=== PATIENT | female | born 1975 | race Caucasian/White ===

== ENCOUNTER 2016-07-27 08:00 | Inpatient (IN) | payer MEDICAID ==
[~2016-07-27] VITALS: Ht 144.8 cm; Wt 89.5 kg
[~2016-07-27 08:00] MED LIST: PRENATAL VITAMINS
[2016-07-27 19:56] VITALS: Ht 144.8 cm; Wt 89.5 kg
[2016-07-27 19:57] VITALS: BP 120/63; PULSE 110; RESP 16
[2016-07-27] MEDS ORDERED: MISOPROSTOL 200 MCG TAB PR PRN (20:00)
[2016-07-27] MEDS ORDERED: OXYTOCIN 30 UNITS/LR 500 ML IV PRN (20:00)
[2016-07-27] MEDS ORDERED: CARBOPROST 250 MCG INJ IM PRN (20:00)
[2016-07-27] MEDS ORDERED: METHYLERGONOVINE 0.2 MG INJ IM PRN (20:00)
[2016-07-27] MEDS ORDERED: LIDOCAINE 1% (MPF) 30 ML INJ INJ PRN (20:00)
[2016-07-27] MEDS: LACTATED RINGER'S 1,000 ML IV SCH (20:40)
[2016-07-27 21:17] LABS: BASOPHILS % 0.3 % (0.0-2.0); EOSINOPHILS % 0.5 % (0.0-7.0); HEMATOCRIT 41.6 % (37.0-47.0); HEMOGLOBIN 13.9 g/dl (12.0-16.0); LYMPHOCYTES # 1.9 10^3/ul (0.8-2.9); LYMPHOCYTES % 19.5 % (15.0-51.0); MEAN CORPUSCULAR HEMOGLOBIN 29.6 pg (29.0-33.0); MEAN CORPUSCULAR HGB CONC 33.4 g/dl (32.0-37.0); MEAN CORPUSCULAR VOLUME 88.6 fl (82.0-101.0); MEAN PLATELET VOLUME 8.8 fl (7.4-10.4); MONOCYTE # 0.7 10^3/ul (0.3-0.9); NEUTROPHIL # 6.9 10^3/ul (1.6-7.5); NEUTROPHILS % 72.7 % (39.0-77.0); PLATELET COUNT 294 10^3/UL (140-440); RED CELL DISTRIBUTION WIDTH 15.8 % (11.5-14.5); UNCORRECTED WBC 9.5 10^3/ul (4.8-10.8); WHITE BLOOD COUNT 9.5 10^3/ul (4.8-10.8)
[2016-07-27 21:18] LABS: INR 0.94; PROTIME 12.6 Sec (12.2-14.2)
[2016-07-27 21:19] LABS: PARTIAL THROMBOPLASTIN TIME 26.9 Sec (25.0-35.0)
[2016-07-27 21:19] LABS: CONDITION 1; LH ANALYZER COMMENTS 1
[2016-07-27] MEDS ORDERED: LACTATED RINGER'S 1,000 ML IV PRN (23:00)
[2016-07-28] MEDS: OXYTOCIN 30 UNITS/LR 500 ML IV SCH ×4 (03:04→17:10)
[2016-07-28] MEDS: LACTATED RINGER'S 1,000 ML IV SCH (04:07)
--- NOTE | 2016-07-28 08:40 | HP ---
Date/Time of Note Date/Time of Note DATE: 07/28/16 TIME: 08:35 OB - History Hx of Present Free Text/Dictation 40 years old female admitted to [facility] in active labor pelvic examination at the time of admission cervical dilatation 3 cm 80% effaced vertex at -2 is with intact membranes contractions 3-5 minutes. she was transferred to [facility] for vaginal delivery Chief Complaint: Labor pain Estimated Due Date: Jul 22, 2016 : 7 Para: 5 Spontaneous : 1 Care: Limited Care Ultrasounds: Normal mid trimester US Obstetrical Complications: Gestational Diabetes Medical Complications: None Past Family/Social History * Past Medical, Surgical, Family and Obstetric Histories reviewed from chart. Rubella: immune RPR/VDRL: Negative GBS Status: Negative HBsAG: Negative OB Admission Exam Vital Signs Vital Signs Vital Signs Date Time Temp Pulse Resp B/P Pulse Ox O2 Delivery O2 Flow Rate FiO2 07/27/16 19:57 98.9 110 16 120/63 99 Room Air Physical Exam HEENT: WNL Heart: Rhythm Normal Lungs: Clear, Equal Abdomen: WNL Extremities: Normal Reflexes: Normal Cervical Dilatation: 3cm Effacement: 75% Station: -1 Membranes: Intact Accelerations: Accelerations Present Decelerations: No Decelerations Varibility: Moderate Contractions on Admission: 6-10 Minutes Apart Intensity: Mild Last 72 hours Lab Results CBC & BMP 07/27/16 20:56 CONSUELO SIMS MD Jul 28, 2016 08:40
--- NOTE | 2016-07-28 08:53 | LDN ---
Date/Time of Note Date/Time of Note DATE: 07/28/16 TIME: 08:47 Delivery Summary Normal spontaneous vaginal delivery of a baby girl from BHARATHI position shoulders delivered without any difficulty he delivered with the [place] maneuver the rest of the baby's body followed placenta spontaneous expulsion inspected complete patient sustained small perineal laceration repaired with 3-0 chromic catgut estimated blood loss [address] Ray rojas Placenta Delivered: Spontaneously Perineum intact?: Yes Perineal laceration repair: First-degree perineal laceration repaired with 3-0 chromic catgut Anesthesia type: Epidural Estimated blood loss: 250 Sponge & Needle done & correct: Yes All needle counts correct: Yes Any foreign bodies felt in the: No Problems: Delivery Information Sex Infant Sex: female Apgars 1 Minute: 9 5 Minute: 9 Suctioning Nose & mouth suctioned at mickey: Yes Delee suction performed: Yes Umbilical Cord Umbilical cord with: 3 Vessels Cord presentations: no nuchal cord Cord Blood was obtained: Yes CONSUELO SIMS MD Jul 28, 2016 08:53
[2016-07-28 10:15] VITALS: BP 103/55; PULSE 80; RESP 16
[2016-07-28] MEDS: LACTATED RINGER'S 1,000 ML IV* SCH ×3 (10:20→20:54)
[2016-07-28] MEDS ORDERED: ONDANSETRON 4 MG INJ IV PRN (10:30)
[2016-07-28] MEDS ORDERED: ACETAMINOPHEN 325 MG TAB PO PRN (10:30)
[2016-07-28] MEDS ORDERED: CARBOPROST 250 MCG INJ IM PRN (10:30)
[2016-07-28] MEDS ORDERED: MISOPROSTOL 200 MCG TAB PR PRN (10:30)
[2016-07-28] MEDS ORDERED: DIBUCAINE 1% 30 GM OINT PR PRN (10:30)
[2016-07-28] MEDS ORDERED: OXYTOCIN 30 UNITS/LR 500 ML IV PRN (10:30)
[2016-07-28] MEDS ORDERED: METHYLERGONOVINE 0.2 MG INJ IM PRN (10:30)
[2016-07-28] MEDS ORDERED: ACETAMINOPHEN/CODEINE #3 TAB PO PRN ×2 (10:30)
[2016-07-28] MEDS ORDERED: OXYCODONE/ASPIRIN (4.88/325) TAB PO PRN ×2 (10:30)
[2016-07-28] MEDS ORDERED: LANOLIN 7 GM TUBE TOP PRN (10:30)
[2016-07-28 10:45] VITALS: BP 92/50; PULSE 78; RESP 20
[2016-07-28] MEDS ORDERED: INFLUENZA VIRUS VACCINE 0.5 ML SYG IM* ONE (11:30)
[2016-07-28 12:05] VITALS: BP 82/43; PULSE 77; RESP 16
[2016-07-28] MEDS: BENZOCAINE 20% 56 ML SPRAY TOP PRN (12:38)
[2016-07-28] MEDS: WITCH HAZEL/GLYCERIN PAD PR PRN (12:38)
[2016-07-28] MEDS: IBUPROFEN 600 MG TAB PO SCH ×2 (12:44→18:00)
[2016-07-28 16:15] VITALS: BP 98/59; PULSE 76; RESP 18
[2016-07-28 20:15] VITALS: BP 93/53; PULSE 83; RESP 20
[2016-07-28] MEDS: SENNA/DOCUSATE NA (8.6MG/50MG) TAB PO SCH (20:54)
[2016-07-29 00:15] VITALS: BP 94/52; PULSE 85; RESP 20
[2016-07-29 03:45] VITALS: BP 80/51; PULSE 83; RESP 18
[2016-07-29] MEDS: IBUPROFEN 600 MG TAB PO SCH ×5 (06:00→23:39)
[2016-07-29 08:00] VITALS: BP 102/52; PULSE 80; RESP 18
[2016-07-29 08:25] LABS: BASOPHILS % 0.3 % (0.0-2.0); EOSINOPHILS # 0.1 10^3/ul (0.0-0.5); EOSINOPHILS % 0.9 % (0.0-7.0); HEMATOCRIT 33.5 % (37.0-47.0); HEMOGLOBIN 11.1 g/dl (12.0-16.0); LYMPHOCYTES % 20.4 % (15.0-51.0); MEAN CORPUSCULAR HEMOGLOBIN 30.1 pg (29.0-33.0); MEAN CORPUSCULAR HGB CONC 33.3 g/dl (32.0-37.0); MEAN CORPUSCULAR VOLUME 90.4 fl (82.0-101.0); MEAN PLATELET VOLUME 9.3 fl (7.4-10.4); MONOCYTE # 0.6 10^3/ul (0.3-0.9); NEUTROPHIL # 7.1 10^3/ul (1.6-7.5); NEUTROPHILS % 72.4 % (39.0-77.0); PLATELET COUNT 233 10^3/UL (140-440); RED CELL DISTRIBUTION WIDTH 15.2 % (11.5-14.5); UNCORRECTED WBC 9.8 10^3/ul (4.8-10.8); WHITE BLOOD COUNT 9.8 10^3/ul (4.8-10.8)
[2016-07-29 08:36] LABS: CONDITION 1; LH ANALYZER COMMENTS 1
[2016-07-29] MEDS: SENNA/DOCUSATE NA (8.6MG/50MG) TAB PO SCH ×2 (09:00→20:45)
--- NOTE | 2016-07-29 09:56 | PN ---
Date/Time of Note Date/Time of Note DATE: 07/29/16 TIME: 09:55 OB Subjective Subjective Subjective day 1 Afebrile vital sign stable abdomen soft uterus firm lochia normal extremity normal Laboratory Tests Test 07/29/16 07:21 Basophils # 0.010^3/ul Basophils % 0.3% Blood Morphology Comment Eosinophils # 0.110^3/ul Eosinophils % 0.9% Hematocrit 33.5% Hemoglobin 11.1g/dl Lymphocytes # 2.010^3/ul Lymphocytes % 20.4% Mean Corpuscular Hemoglobin 30.1pg Mean Corpuscular Hemoglobin Concent 33.3g/dl Mean Corpuscular Volume 90.4fl Mean Platelet Volume 9.3fl Monocytes # 0.610^3/ul Monocytes % 6.0% Neutrophils # 7.110^3/ul Neutrophils % 72.4% Nucleated Red Blood Cells # 0.010^3/ul Nucleated Red Blood Cells % 0.0/100WBC Platelet Count 38517^3/UL Red Blood Count 3.7010^6/ul Red Cell Distribution Width 15.2% White Blood Count 9.810^3/ul Current Medications Medications (Trade) Dose Ordered Sig/Rojelio Route PRN Reason Start Time Stop Time Status Last Admin Dose Admin Lactated Ringer's (Lr) 1,000 ml @ 125 mls/hr Q8H IV 07/27/16 19:54 07/28/16 10:22 DC 07/28/16 04:07 Lidocaine 30 ml 30 ml ONCE PRN INJ EPISIOTOMY/TEARING 07/27/16 20:00 07/28/16 10:22 DC Lactated Ringer's 1,000 ml @ 2,000 mls/hr Q30M PRN IV PRE-EPIDURAL BOLUS 07/27/16 23:00 07/28/16 17:50 DC Oxytocin/Lactated Ringer's 500 ml @ 0 mls/hr ONCE PRN IV For Hemorrhage Management 07/27/16 20:00 07/28/16 10:22 DC Methylergonovine Maleate (Methergine) 0.2 mg ONCE PRN IM VAGINAL BLEEDING 07/27/16 20:00 Carboprost Tromethamine (Hemabate) 250 mcg ONCE PRN IM VAGINAL BLEEDING 07/27/16 20:00 Misoprostol 1000 mcg 1,000 mcg ONCE PRN TN VAGINAL BLEEDING 07/27/16 20:00 Oxytocin/Lactated Ringer's 500 ml @ 0 mls/hr Q0M IV 07/28/16 03:00 07/28/16 17:50 DC 07/28/16 08:43 Oxytocin/Lactated Ringer's 500 ml @ 125 mls/hr Q4H IV 07/28/16 10:20 07/28/16 17:50 DC 07/28/16 17:10 Ibuprofen (Motrin) 600 mg Q6 PO 07/28/16 12:00 07/28/16 12:44 Acetaminophen (Tylenol Tab) 650 mg Q4H PRN PO PAIN LEVEL 1-5 07/28/16 10:30 Acetaminophen/ Codeine Phosphate (Tylenol No.3) 1 tab Q4H PRN PO PAIN LEVEL 1-5 07/28/16 10:30 Acetaminophen/ Codeine Phosphate (Tylenol No.3) 2 tab Q4H PRN PO PAIN LEVEL 6-10 07/28/16 10:30 Oxycodone/Aspirin (Percodan) 1 tab Q3H PRN PO PAIN LEVEL 1-5 07/28/16 10:30 Oxycodone/Aspirin (Percodan) 2 tab Q3H PRN PO PAIN LEVEL 6-10 07/28/16 10:30 Ondansetron HCl (Zofran Inj) 4 mg Q6H PRN IV NAUSEA AND/OR VOMITING 07/28/16 10:30 Senna/Docusate Sodium (Senokot-S) 1 tab BID PO 07/28/16 21:00 07/28/16 20:54 Witch Saranya/ Glycerin (Tucks Pads) 1 pad BEDSIDE MEDICATION PRN TN HEMORRHOID/EPISIOTMY PAIN 07/28/16 10:30 07/28/16 12:38 Benzocaine (Dermoplast Big Arm) 1 spray BEDSIDE MEDICATION PRN TOP HEMORRHOID/EPISIOTMY PAIN 07/28/16 10:30 07/28/16 12:38 Dibucaine (Nupercainal) 1 applic BEDSIDE MEDICATION PRN TN HEMORRHOID/EPISIOTMY PAIN 07/28/16 10:30 Lanolin (Yok-M-Bcluuy) 1 applic BEDSIDE MEDICATION PRN TOP BEDSIDE FOR CARLO TO NIPPLES 07/28/16 10:30 07/28/16 12:38 Measles/Mumps/ Rubella Vaccine Live 0.5 ml 0.5 ml ONCE ONCE SC* 07/30/16 09:00 07/30/16 09:01 Lactated Ringer's 1,000 ml @ 125 mls/hr Q8H IV* 07/28/16 10:20 07/28/16 20:54 Oxytocin/Lactated Ringer's 500 ml @ 0 mls/hr ONCE PRN IV For Hemorrhage Management 07/28/16 10:30 Methylergonovine Maleate (Methergine) 0.2 mg ONCE PRN IM VAGINAL BLEEDING 07/28/16 10:30 Carboprost Tromethamine (Hemabate) 250 mcg ONCE PRN IM VAGINAL BLEEDING 07/28/16 10:30 Misoprostol (Cytotec) 1,000 mcg ONCE PRN TN VAGINAL BLEEDING 07/28/16 10:30 Influenza Virus Vaccine (Fluzone) 0.5 ml ONCE ONCE IM* 07/28/16 11:30 07/28/16 13:03 DC Influenza Virus Vaccine (Fluzone) 0.5 ml ONCE ONCE IM* 07/29/16 13:00 07/29/16 13:01 CONSUELO SIMS MD Jul 29, 2016 09:56
[2016-07-29] MEDS: LACTATED RINGER'S 1,000 ML IV* SCH ×2 (10:20→18:20)
[2016-07-29] MEDS ORDERED: INFLUENZA VIRUS VACCINE 0.5 ML SYG IM* ONE (13:00)
[2016-07-29 16:00] VITALS: BP 100/57; PULSE 83; RESP 17
[2016-07-29 19:55] VITALS: BP 111/56; PULSE 86; RESP 19
[2016-07-30] MEDS: LACTATED RINGER'S 1,000 ML IV* SCH ×2 (02:20→10:20)
[2016-07-30 03:45] VITALS: BP 91/53; PULSE 79; RESP 18
[2016-07-30] MEDS: IBUPROFEN 600 MG TAB PO SCH ×2 (05:47→13:01)
[2016-07-30 08:15] VITALS: BP 111/57; PULSE 80; RESP 19
[2016-07-30] MEDS ORDERED: MEASLES,MUMPS,RUBELLA VACCINE INJ SC* ONE (09:00)
[2016-07-30] MEDS: SENNA/DOCUSATE NA (8.6MG/50MG) TAB PO SCH (09:51)
[2016-07-30] MEDS: BENZOCAINE 20% 56 ML SPRAY TOP PRN (09:51)
[2016-07-30] MEDS: WITCH HAZEL/GLYCERIN PAD PR PRN (09:51)
--- NOTE | 2016-07-30 13:12 | PD.PPDC ---
PEACE OFFICER Discharge Instruction Condition Patient Condition: Good Activity/Restrictions Activity: Normal Activity May Shower Restrictions: No Exercising No Lifting No Driving No Sexual Activity Nothing in the Vagina No [place] No Tampons, douche Follow-up Follow-up with Physician: 2, Week/Weeks Return to clinic for ENGINEERING CLERK Instructions: Fever greater than 101 Worsening abdominal pain More than 2 pads per hour CONSUELO SIMS MD Jul 30, 2016 13:12
--- NOTE | 2016-07-30 13:14 | DS ---
Date/Time of Note Date/Time of Note DATE: 07/30/16 TIME: 13:12 Obstetrical Discharge Record Final Diagnosis Final Diagnosis: Term delivered Vaginal Delivery Obstetrical Delivery: Spontaneous Condition on Discharge Physical Assessment Last Vitals: vs stable abdomen soft lochia normal ext normal discharged home ,appointment office in 2 weeks Voiding: Yes Bowel Movement: Yes Breast: Soft, non-tender Fundus: Firm Calf Tenderness: No Patient Condition: Good CONSUELO SIMS MD Jul 30, 2016 13:14
== END 2016-07-30 15:30 | disposition home or self-care (01) | DRG 775 ==
LOC: L-D 19:00 → PP1 07-28 10:10
PROVIDERS: ADMIT Obstetrics & Gynecology; ATTEND Obstetrics & Gynecology
PROC: 0HQ9XZZ Repair Perineum Skin, External Approach (ICD-10-PCS; 2016-07-27)
PROC: 10E0XZZ Delivery of Products of Conception, External Approach (ICD-10-PCS; principal; 2016-07-27 08:00)
DX: O24.429 Gestational diabetes mellitus in childbirth, unspecified control (principal); O70.0 First degree perineal laceration during delivery; Z3A.40 40 weeks gestation of pregnancy; Z37.0 Single live birth
CPT/HCPCS: 85025; 85610; 85730; 86592; 86900; 86901; 90686; J2590; J7120